=== PATIENT | female | born 1980 | race Caucasian/White ===

== ENCOUNTER 2017-08-31 09:57 | Emergency (ER) | payer BC, SELFPAY ==
[2017-08-31 10:18] VITALS: BP 124/91; PULSE 92; RESP 18; TEMP 36.8; O2SAT 100; BMI 24.9
[2017-08-31 10:38] LABS: Basophils # 0.1 K/mm3 (0-0.2); Basophils % 0.5 % (0.1-2.0); Eosinophils # 0.1 K/mm3 (0.0-0.4); Eosinophils % 0.4 % (0.1-12.0); Hematocrit 43.7 % (37.0-47.0); Hemoglobin 14.2 g/dL (12.2-16.2); Mean Corpuscular HGB Conc 32.5 g/dL (31.8-35.4); Mean Corpuscular Hemoglobin 30.7 pg (27.0-31.2); Mean Corpuscular Volume 94.3 fl (81-99); Mean Platelet Volume 7.4 fl (7.4-10.4); Monocytes # 0.6 K/mm3 (0.1-1.0); Monocytes % 4.8 % (1.7-9.3); Neutrophils # 8.2 K/mm3 (1.8-7.8); Neutrophils % 69.2 % (37.0-80.0); Platelet Count 450 K/mm3 (142-424); Red Blood Count 4.64 M/mm3 (4.20-5.40); Red Cell Distribution Width 14.2 % (11.5-17.5); White Blood Count 11.9 K/mm3 (4.8-10.8)
[2017-08-31 10:46] LABS: Alanine Aminotransferase 27 U/L (12-78); Albumin Level 4.4 gm/dL (3.4-5.0); Albumin/Globulin Ratio 1.2 (1.1-1.8); Alkaline Phosphatase 94 U/L (46-116); Anion Gap 14.3 mEq/L (5-15); Aspartate Amino Transferase 11 U/L (15-37); Bilirubin,Total 0.4 mg/dL (0.2-1.0); Blood Urea Nitrogen 11 mg/dL (7-18); Calcium 8.9 mg/dL (8.5-10.1); Carbon Dioxide 25 mmol/L (21.0-32.0); Chloride 106 mmol/L (98-107); Creatinine Clearance Estimated 104 mL/min (0-300); Creatinine,Serum 0.76 mg/dL (0.55-1.02); Estimated Glomerular Filt Rate 85 ml/min (>60); GFR (African American) 103 ML/MIN (>60); Globulin 3.6 gm/dl (1.3-3.2); Glucose 100 mg/dL (74-106); Lipase 153 u/L (73-393); Potassium 3.3 mmoL/L (3.5-5.1); Sodium 142 mmol/L (136-145)
--- NOTE | 2017-08-31 11:34 | HMH.EDGENADL ---
ED Disposition Clinical Impression: Gall bladder disease, C. difficile colitis Disposition: Home, Self-Care Condition on Discharge: Fair Additional Instructions: As I discussed with the patient she declined antibiotics due to history of C. difficile. She is agreeable for symptomatic treatment treatment using Bentyl. She has Phenergan at home, she will follow-up with Dr. Leigh in the morning. She is to return if she is worse Prescriptions: Dicyclomine HCl [Bentyl 10mg capsule] 10 mg PO Q8HP PRN #21 cap PRN Reason: Cramping - Critical Care Critical Care Time: No Attestation: On 08/31/17, the high probability of a clinically significant, sudden or life threatening deterioration of the following system(s) required my full and direct attention, intervention and personal management. The time I documented below is in addition to time spent performing reported procedures but includes the following listed in this critical care notation. Medical Decision Making - Medical Records Medical records reviewed: Yes: I reviewed the patient's medical records. Vital Signs: 08/31/17 10:18 Temperature 98.2 F Temperature Source Oral Pulse Rate [Right Brachial] 92 H Respiratory Rate 18 Blood Pressure [Right Arm] 124/91 Blood Pressure Mean [Right Arm] 102 Blood Pressure Source [Right Arm] Automatic Cuff Blood Pressure Position [Right Arm] Sitting 02 Sat by Pulse Oximetry 100 Oxygen Delivery Method Room Air - Lab Data Lab Results 08/31/17 10:25: WBC 11.9 H, RBC 4.64, Hgb 14.2, Hct 43.7, MCV 94.3, MCH 30.7, MCHC 32.5, RDW 14.2, Plt Count 450 H, MPV 7.4, Neut % (Auto) 69.2, Lymph % (Auto) 25.0, Ing[place] % (Auto) 4.8, Eos % (Auto) 0.4, Baso % (Auto) 0.5, Neut # (Auto) 8.2 H, Lymph # (Auto) 3.0, Ing[place] # (Auto) 0.6, Eos # (Auto) 0.1, Baso # (Auto) 0.1 08/31/17 10:25: Sodium 142, Potassium 3.3 L, Chloride 106, Carbon Dioxide 25, Anion Gap 14.3, BUN 11, Creatinine 0.76, Estimated Creat Clear 104, Estimated GFR 85, Est GFR ( Amer) 103, Glucose 100, Calcium 8.9, Total Bilirubin 0.4, AST 11 L, ALT 27, Alkaline Phosphatase 94, Total Protein 8.0, Albumin 4.4, Globulin 3.6 H, Albumin/Globulin Ratio 1.2, Lipase 153 Result diagrams: 08/31/17 10:25 08/31/17 10:25 Orders (Tests/Meds): ED MEDICATIONS Discontinued Medications Generic Name Dose Route Start Last Admin Trade Name Oz PRN Reason Stop Dose Admin Potassium Chloride 40 meq 08/31/17 11:30 Klor-Con 20meq Tablet PO 08/31/17 11:31 ONCE ONE ORDERS Category Date Time Status Urinalysis and Microscopic Stat Lab 08/31/17 10:28 Ordered - Jorge Luis Inquiry Pt receiving controlled substance: No Jorge Luis was queried for this patient: No Medical Decision Making Narrative: I had a discussion with Radha about her gallbladder disease. He did tell me that she has gallbladder sludge. She also told me that Dr. Leigh told her not to take antibiotics because of her history of C. difficile. At the present time she has no fever, she has a low white count, and considering her history of C. difficile the best thing to do is to observe her. She understands that her condition is surgical and the treatment is gallbladder removal by surgery. General Adult HPI - General Chief complaint: PAIN Stated complaint: stomach pain,possible gall bladder Mode of Arrival: Ambulatory Limitations: No Limitations Description of Symptoms (Recalled from ER Triage Doc. by RN): NA - History of Present Illness HPI narrative: 37 years old white female patient of Dr. Leigh from [facility] with a known gallbladder disease, C. difficile, and thrombocytosis. She is waiting on her gallbladder surgery because of insurance/deductible issues. She developed another episode of right upper quadrant pain and vomited at work. Was brought accompanied by co worker. She denies having diarrhea fever chills. Chest pain shortness of breath or palpitation. Onset (ago): month
--- NOTE | 2017-08-31 11:37 | ED_ITS ---
ED Disposition Clinical Impression: Gall bladder disease, C. difficile colitis Disposition: Home, Self-Care Condition on Discharge: Fair Additional Instructions: As I discussed with the patient she declined antibiotics due to history of C. difficile. She is agreeable for symptomatic treatment treatment using Bentyl. She has Phenergan at home, she will follow-up with Dr. Leigh in the morning. She is to return if she is worse Prescriptions: Dicyclomine HCl [Bentyl 10mg capsule] 10 mg PO Q8HP PRN #21 cap PRN Reason: Cramping - Critical Care Critical Care Time: No Attestation: On 08/31/17, the high probability of a clinically significant, sudden or life threatening deterioration of the following system(s) required my full and direct attention, intervention and personal management. The time I documented below is in addition to time spent performing reported procedures but includes the following listed in this critical care notation. Medical Decision Making - Medical Records Medical records reviewed: Yes: I reviewed the patient's medical records. Vital Signs: 08/31/17 10:18 Temperature 98.2 F Temperature Source Oral Pulse Rate [Right Brachial] 92 H Respiratory Rate 18 Blood Pressure [Right Arm] 124/91 Blood Pressure Mean [Right Arm] 102 Blood Pressure Source [Right Arm] Automatic Cuff Blood Pressure Position [Right Arm] Sitting 02 Sat by Pulse Oximetry 100 Oxygen Delivery Method Room Air - Lab Data Lab Results 08/31/17 10:25: WBC 11.9 H, RBC 4.64, Hgb 14.2, Hct 43.7, MCV 94.3, MCH 30.7, MCHC 32.5, RDW 14.2, Plt Count 450 H, MPV 7.4, Neut % (Auto) 69.2, Lymph % (Auto ) 25.0, [place] % (Auto) 4.8, Eos % (Auto) 0.4, Baso % (Auto) 0.5, Neut # (Auto) 8.2 H, Lymph # (Auto) 3.0, [place] # (Auto) 0.6, Eos # (Auto) 0.1, Baso # (Auto) 0.1 08/31/17 10:25: Sodium 142, Potassium 3.3 L, Chloride 106, Carbon Dioxide 25, Anion Gap 14.3, BUN 11, Creatinine 0.76, Estimated Creat Clear 104, Estimated GFR 85, Est GFR ( Amer) 103, Glucose 100, Calcium 8.9, Total Bilirubin 0.4, AST 11 L, ALT 27, Alkaline Phosphatase 94, Total Protein 8.0, Albumin 4.4, Globulin 3.6 H, Albumin/Globulin Ratio 1.2, Lipase 153 Result diagrams: 08/31/17 10:25 08/31/17 10:25 Orders (Tests/Meds): ED MEDICATIONS Discontinued Medications Generic Name Dose Route Start Last Admin Trade Name Freq PRN Reason Stop Dose Admin Potassium Chloride 40 meq 08/31/17 11:30 Klor-Con 20meq Tablet PO 08/31/17 11:31 ONCE ONE ORDERS Category Date Time Status Urinalysis and Microscopic Stat Lab 08/31/17 10:28 Ordered - Jorge Luis Inquiry Pt receiving controlled substance: No Jorge Luis was queried for this patient: No Medical Decision Making Narrative: I had a discussion with Radha about her gallbladder disease. He did tell me that she has gallbladder sludge. She also told me that Dr. Leigh told her not to take antibiotics because of her history of C. difficile. At the present time she has no fever, she has a low white count, and considering her history of C. difficile the best thing to do is to observe her. She understands that her condition is surgical and the treatment is gallbladder removal by surgery. General Adult HPI - General Chief complaint: PAIN Stated complaint: stomach pain,possible gall bladder Mode of Arrival: Ambulatory
[2017-08-31 11:49] VITALS: BP 134/92; PULSE 79; RESP 18; TEMP 36.7
== END 2017-08-31 11:49 | disposition home or self-care (01) ==
PROVIDERS: Emergency Provider Emergency Medicine; Family Provider Nurse Practitioner Family
DX: K82.9 Disease of gallbladder, unspecified (principal); A04.72 Enterocolitis due to Clostridium difficile, not specified as recurrent; Z88.0 Allergy status to penicillin
CPT/HCPCS: 80053; 83690; 85025; 99281

== ENCOUNTER → 2017-09-08 13:59 | Outpatient (CLI) | payer BC, SELFPAY ==
[2017-09-08 14:44] LABS: Basophils # 0.1 K/mm3 (0-0.2); Basophils % 0.6 % (0.1-2.0); Eosinophils # 0.1 K/mm3 (0.0-0.4); Eosinophils % 0.9 % (0.1-12.0); Hematocrit 42.2 % (37.0-47.0); Hemoglobin 13.8 g/dL (12.2-16.2); Lymphocytes # 3.2 K/mm3 (0.7-4.5); Lymphocytes % 31.6 K/mm3 (10-50); Mean Corpuscular HGB Conc 32.6 g/dL (31.8-35.4); Mean Corpuscular Hemoglobin 30.9 pg (27.0-31.2); Mean Corpuscular Volume 94.7 fl (81-99); Mean Platelet Volume 7.6 fl (7.4-10.4); Monocytes # 0.6 K/mm3 (0.1-1.0); Monocytes % 5.8 % (1.7-9.3); Neutrophils # 6.2 K/mm3 (1.8-7.8); Platelet Count 445 K/mm3 (142-424); Red Blood Count 4.46 M/mm3 (4.20-5.40); Red Cell Distribution Width 14.2 % (11.5-17.5); White Blood Count 10.2 K/mm3 (4.8-10.8)
[2017-09-08 15:13] LABS: Alanine Aminotransferase 25 U/L (12-78); Albumin/Globulin Ratio 1.3 (1.1-1.8); Alkaline Phosphatase 87 U/L (46-116); Anion Gap 13.5 mEq/L (5-15); Aspartate Amino Transferase 9 U/L (15-37); Bilirubin,Total 0.2 mg/dL (0.2-1.0); Blood Urea Nitrogen 8 mg/dL (7-18); Calcium 8.8 mg/dL (8.5-10.1); Carbon Dioxide 25 mmol/L (21.0-32.0); Chloride 107 mmol/L (98-107); Creatinine,Serum 0.57 mg/dL (0.55-1.02); Estimated Glomerular Filt Rate 119 ml/min (>60); GFR (African American) 144 ML/MIN (>60); Globulin 3.1 gm/dl (1.3-3.2); Glucose 96 mg/dL (74-106); Potassium 4.5 mmoL/L (3.5-5.1); Sodium 141 mmol/L (136-145); Total Protein,Serum 7.1 gm/dL (6.4-8.2)
== END ==
PROVIDERS: PCP Family Medicine; Visit Provider Surgery
DX: K82.8 Other specified diseases of gallbladder (principal); K82.9 Disease of gallbladder, unspecified; Z01.818 Encounter for other preprocedural examination
CPT/HCPCS: 36415; 80053; 85025

== ENCOUNTER 2017-09-10 06:00 | Day surgery (SDC) | payer BC, SELFPAY ==
[2017-09-09 13:59] VITALS: BMI 22.4
[2017-09-10] VITALS (8 sets, daily range): BP systolic 97–135; BP diastolic 54–98; PULSE 68–90; RESP 12–18; TEMP 36.3–36.9; O2SAT 98–100
[2017-09-10 06:27] LABS: Urine Pregnancy, HCG Qual. Negative (Negative)
--- NOTE | 2017-09-10 07:01 | HMH.ANESCL ---
[facility] Anesthesia Checklist - Patient Identification Patient Identification: Arm Band, Verbal (Name & ) - Structural Data Admitted From: Home Planned Operative Procedure/s: lap choly Consent for Planned Operative Procedure(s) Verified: Yes Verified Documents: Surgical Consent, History and Physical - NPO Status Verified Time NPO: 00:00 - Chart Verification Results Verified: CBC, BMP - Additional verifications Patient : No Anesthesia Reactions: No Hx Blood Transfusions: No Blood Transfusion Reaction: No Cephalosporin Allergy: No Previous Colonoscopy: No - Cardiovascular Assessment Heart Sounds: S1 & S2 Pulse Strength: Baseline Pulse Rhythm: Regular Peripheral Edema: No - Airway Assessment C-Spine Mobility Assessed: No TMJ Mobility Assessed: No Dentition: Good Dentition - Neurological Assessment Level of Consciousness: Awake, Alert, Appropriate Hx Seizures: No Numbness or tingling in extremities: No - Genitourinary Assessment 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 No: Pacemaker Amputation: No Fractures: No *Family Hx:: Unable to obtain, Adopted
--- NOTE | 2017-09-10 08:04 | HMH.OPNOTE ---
Date of procedure: 09/10/17 Pre-op Diagnosis:: Gallbladder disease, biliary dyskinesia Post-op diagnosis:: same Procedure performed:: Laparoscopic cholecystectomy Surgeon:: Cricket Mejia MD ELECTRONICS ASSEMBLER AND TESTER:: Pato Mandujano Anesthesia: GETA Estimated blood loss (mL): 15 Clinical Note:: Patient is a 37-year-old white female from [place] who was referred by her primary care physician Dr. Reed Leigh in [facility] for gallbladder. She has had problems for about 6 months that she describes as postprandial pain occurring about 15-20 minutes after eating. She has had weight loss due to the pain. She is also had some nausea and vomiting. She undergone a gallbladder ultrasound which was negative for stones revealing some sludge. She had a HIDA scan with fatty meal revealing an ejection fraction of 33% with some significant symptoms with fatty meal intake. Patient had actually been scheduled by another surgeon for surgery on several occasions and she had to reschedule for various reasons. She was seen in the office. It was explained to the patient that it was unclear if the majority of her symptoms are secondary to her gallbladder as her ejection fraction was slightly below normal but her symptoms were definitely consistent with gallbladder disease. The options were discussed and she strongly wished pursuing cholecystectomy as soon as possible. Operative findings:: She had a slightly distended gallbladder. Operative note:: Consent was obtained and patient was taken to the operating room. She was positioned in a supine position. General anesthesia was induced. Abdomen was prepped and draped in the standard surgical fashion. Subumbilical skin incision was made in her previous laparoscopy scar. While performing abdominal wall lift Veress needle was inserted and CO2 pneumoperitoneum was achieved to 15 mmHg. 10/11 mm optical trocar was inserted at the umbilicus. Intraperitoneal contents were visualized and she was positioned in reverse Trendelenburg with left side down. A couple of 5 mm trochars were inserted in the right upper abdomen. 10 mm trocar was inserted in the epigastrium. Gallbladder was grasped and retracted anteriorly over the dome of the liver. Infundibulum of the gallbladder was retracted anterior laterally. Blunt dissection was carried out at the neck of the gallbladder bluntly dissecting free and isolating the cystic duct. The cystic duct and cystic artery as well as the node of Calot were clearly identified in the critical view of safety. Cystic duct was multiply clipped and then sharply divided. Cystic artery was carefully coagulated with Harish ultrasonic harmonic jeanie and divided. The gallbladder was dissected free from the liver in a retrograde fashion using Harish ultrasonic harmonic jeanie. Gallbladder was placed within an Endo Catch retrieval device and removed from the peritoneal cavity via the umbilical trocar site. Gallbladder fossa was inspected for hemostasis which was assured. Trochars were removed as CO2 pneumoperitoneum was evacuated. Fascia at the umbilicus was closed with a 0 Vicryl suture. Local anesthetic was infiltrated. Skin incisions were closed with 4-0 Monocryl in subcuticular fashion. Steri-Strips and clean dry sterile dressings were applied. Condition: stable Disposition: PACU Specimens:: Gallbladder and contents Complications:: None
--- NOTE | 2017-09-10 08:10 | P.OP_ITS ---
Date of procedure: 09/10/17 Pre-op Diagnosis:: Gallbladder disease, biliary dyskinesia Post-op diagnosis:: same Procedure performed:: Laparoscopic cholecystectomy Surgeon:: Cricket Mejia MD DEVELOPMENTAL THERAPIST:: Pato Mandujano Anesthesia: GETA Estimated blood loss (mL): 15 Clinical Note:: Patient is a 37-year-old white female from [place] who was referred by her primary care physician Dr. Reed Leigh in [facility] for gallbladder. She has had problems for about 6 months that she describes as postprandial pain occurring about 15-20 minutes after eating. She has had weight loss due to the pain. She is also had some nausea and vomiting. She undergone a gallbladder ultrasound which was negative for stones revealing some sludge. She had a HIDA scan with fatty meal revealing an ejection fraction of 33% with some significant symptoms with fatty meal intake. Patient had actually been scheduled by another surgeon for surgery on several occasions and she had to reschedule for various reasons. She was seen in the office. It was explained to the patient that it was unclear if the majority of her symptoms are secondary to her gallbladder as her ejection fraction was slightly below normal but her symptoms were definitely consistent with gallbladder disease. The options were discussed and she strongly wished pursuing cholecystectomy as soon as possible. Operative findings:: She had a slightly distended gallbladder. Operative note:: Consent was obtained and patient was taken to the operating room. She was positioned in a supine position. General anesthesia was induced. Abdomen was prepped and draped in the standard surgical fashion. Subumbilical skin incision was made in her previous laparoscopy scar. While performing abdominal wall lift Veress needle was inserted and CO2 pneumoperitoneum was achieved to 15 mmHg. 10/11 mm optical trocar was inserted at the umbilicus. Intraperitoneal contents were visualized and she was positioned in reverse Trendelenburg with left side down. A couple of 5 mm trochars were inserted in the right upper abdomen. 10 mm trocar was inserted in the epigastrium. Gallbladder was grasped and retracted anteriorly over the dome of the liver. Infundibulum of the gallbladder was retracted anterior laterally. Blunt dissection was carried out at the neck of the gallbladder bluntly dissecting free and isolating the cystic duct. The cystic duct and cystic artery as well as the node of Calot were clearly identified in the critical view of safety. Cystic duct was multiply clipped and then sharply divided. Cystic artery was carefully coagulated with Harish ultrasonic harmonic jeanie and divided. The gallbladder was dissected free from the liver in a retrograde fashion using Harish ultrasonic harmonic jeanie. Gallbladder was placed within an Endo Catch retrieval device and removed from the peritoneal cavity via the umbilical trocar site. Gallbladder fossa was inspected for hemostasis which was assured. Trochars were removed as CO2 pneumoperitoneum was evacuated. Fascia at the umbilicus was closed with a 0 Vicryl suture. Local anesthetic was infiltrated. Skin incisions were closed with 4-0 Monocryl in subcuticular fashion. Steri- Strips and clean dry sterile dressings were applied. Condition: stable Disposition: PACU Specimens:: Gallbladder and contents Complications:: None
--- NOTE | 2017-09-10 08:16 | P.PN_ITS ---
[facility] Anesthesia Record Part I Intake, IV Amount: 1,500 Estimated blood loss (mL): 0 Urine output (mL): 0 Blood Pressure: 97/54 SaO2: 98 Pulse Rate: 90 Respiratory Rate: 12 Temperature: 98.4 F Patient is:: Awake, Stable Stable to PACU at:: 08:10
--- NOTE | 2017-09-10 08:16 | HMH.ANESII ---
[facility] Anesthesia Record Part II Discharge Time: 08:40 Destination: [facility] PACU nurse assessment reviewed?: Yes Patient Condition:: Good Anesthesia Complications:: None
--- NOTE | 2017-09-10 08:17 | P.PN_ITS ---
[facility] Anesthesia Record Part II Discharge Time: 08:40 Destination: [facility] PACU nurse assessment reviewed?: Yes Patient Condition:: Good Anesthesia Complications:: None
== END 2017-09-10 09:10 | disposition home or self-care (01) ==
LOC: OR 06:03
PROVIDERS: Family Provider Nurse Practitioner Family; PCP Family Medicine; Visit Provider Surgery
PROC: 0FT44ZZ Resection of Gallbladder, Percutaneous Endoscopic Approach (ICD-10-PCS; CPT 47562; principal; 2017-09-10 07:30)
DX: K82.8 Other specified diseases of gallbladder (principal)
CPT/HCPCS: 47562; 81025; 96374; J2405; J2710